=== PATIENT | female | born 1970 | race Two or more races ===

== ENCOUNTER 2017-08-08 11:16 | Emergency (ER) | payer OTHER ==
[~2017-08-08] VITALS: Ht 157.5 cm; Wt 72.6 kg
[~2017-08-08 11:16] MED LIST: CLARITIN5 MG; FLONASE16 GM; NAPROXEN500 M1; NEURONTIN600 MG; SYNTHROID50 MCG; ZANTAC300 MG
[2017-08-08] MEDS ORDERED: SYNTHROID50 MCG PO (11:33)
== END 2017-08-08 13:55 | disposition home or self-care (01) ==
LOC: ER 11:16
DX: J11.1 Influenza due to unidentified influenza virus with other respiratory manifestations (principal); B34.9 Viral infection, unspecified

== ENCOUNTER 2017-10-22 09:21 | Outpatient (CLI) | payer OTHER ==
[~2017-10-22 09:21] MED LIST changes: +SYNTHROID50 MCG PO
== END 2017-10-22 10:00 | disposition home or self-care (01) ==
LOC: NUCLEAR 09:21
DX: I74.9 Embolism and thrombosis of unspecified artery (principal); C50.611 Malignant neoplasm of axillary tail of right female breast
CPT/HCPCS: 78306; A9503

== ENCOUNTER 2018-01-19 08:45 | Outpatient (CLI) | payer OTHER | END 2018-01-19 08:57 | disposition home or self-care (01) | LOC: MAMO-SONO 08:45 | DX: Z12.31 Encounter for screening mammogram for malignant neoplasm of breast (principal); C50.811 Malignant neoplasm of overlapping sites of right female breast ==

== ENCOUNTER 2018-03-04 13:10 | Emergency (ER) | payer OTHER ==
[~2018-03-04] VITALS: Ht 157.5 cm; Wt 81.6 kg
[2018-03-04] MEDS ORDERED: NEURONTIN600 MG PO (13:29)
[2018-03-04] MEDS ORDERED: SINGULAIR10 MG PO (13:30)
== END 2018-03-04 15:24 | disposition home or self-care (01) ==
LOC: ER 13:10
DX: J31.2 Chronic pharyngitis (principal); R50.9 Fever, unspecified

== ENCOUNTER 2018-12-26 07:45 | Emergency (ER) | payer OTHER ==
[~2018-12-26] VITALS: Ht 165.1 cm; Wt 81.6 kg
[~2018-12-26 07:45] MED LIST changes: +NEURONTIN600 MG PO; +SINGULAIR10 MG PO
== END 2018-12-26 10:37 | disposition home or self-care (01) ==
LOC: ER 07:45
DX: M54.5 Low back pain (principal); R10.2 Pelvic and perineal pain

== ENCOUNTER 2021-10-24 08:30 | Emergency (ER) | payer OTHER ==
[~2021-10-24] VITALS: Ht 157.5 cm; Wt 91.2 kg
== END 2021-10-24 14:09 | disposition home or self-care (01) ==
LOC: ER 08:30
DX: R10.2 Pelvic and perineal pain (principal); N23 Unspecified renal colic

== ENCOUNTER 2023-04-07 09:06 | Outpatient (CLI) | payer OTHER | END 2023-04-07 09:30 | disposition home or self-care (01) | LOC: MAMO-SONO 09:06 | PROVIDERS: ATTEND General Practice | DX: Z12.31 Encounter for screening mammogram for malignant neoplasm of breast (principal); N64.4 Mastodynia ==

== ENCOUNTER 2024-06-25 13:18 | Emergency (ER) | payer OTHER ==
[~2024-06-25] VITALS: Ht 157.5 cm; Wt 90.7 kg
[2024-06-25] MEDS ORDERED: ZESTRIL5 MG PO (14:03)
[2024-06-25] MEDS ORDERED: GUAIFENESIN/DEXTROMETHORPHAN 10ML BLIST.PACK PO ONE ×2 (16:15→16:16)
[2024-06-25] MEDS ORDERED: METHYLPREDNISOLONE SOD SUCC 125 MG VIAL IV ONE (16:15)
[2024-06-25] MEDS ORDERED: IPRATROPIUM/ALBUTEROL SULFATE 3 ML AMPUL.NEB IH SCH (16:15)
[2024-06-25] MEDS ORDERED: CETIRIZINE HCL 5 MG/5 ML ML PO ONE (16:15)
[2024-06-25] MEDS ORDERED: CETIRIZINE HCL 5MG/5ML BLIST.PACK PO ONE (16:16)
[2024-06-25] MEDS ORDERED: METHYLPREDNISOLONE SOD SUCC 125 MG VIAL ONE (16:16)
[2024-06-25] MEDS ORDERED: IPRATROPIUM/ALBUTEROL SULFATE 3 ML AMPUL.NEB IH ONE (16:42)
[2024-06-25 18:01] LABS: HEMATOCRIT 36.2 % (36.0-45.00); HEMOGLOBIN 12.8 g/dL (12.0-15.00); MEAN CELL VOLUME 98.8 fL (80.00-100.00); MEAN CORPUSCULAR HGB CONC 35.4 g/dl (32.0-36.0); PLATELET COUNT 261 K/uL (150-450); RED BLOOD COUNT 3.66 M/uL (4.00-6.00); RED CELL DISTRIBUTION WIDTH 12.9 % (11.5-14.5)
[2024-06-25] MEDS ORDERED: IPRATROPIU0.2 MG/1 M IH (19:19)
[2024-06-25] MEDS ORDERED: XOPENEX CO1.25 MG/0. IH (19:19)
[2024-06-25] MEDS ORDERED: ZYRTEC10 MG PO (19:19)
[2024-06-25] MEDS ORDERED: ZITHROMAX500 MG PO (19:19)
[2024-06-25] MEDS ORDERED: MEDROLPACK PO (19:19)
[2024-06-25] MEDS ORDERED: TUSSIN DM LIQU118 ML PO (19:19)
== END 2024-06-25 20:09 | disposition home or self-care (01) ==
LOC: ER 13:21
PROVIDERS: Preventive Medicine Public Health & General Preventive Medicine
DX: J98.8 Other specified respiratory disorders (principal); Z20.822 Contact with and (suspected) exposure to COVID-19; I10 Essential (primary) hypertension; E03.9 Hypothyroidism, unspecified; Z85.3 Personal history of malignant neoplasm of breast

== ENCOUNTER 2024-11-28 09:39 | Emergency (ER) | payer OTHER ==
[~2024-11-28] VITALS: Ht 157.5 cm; Wt 95.7 kg
[~2024-11-28 09:39] MED LIST changes: +IPRATROPIU0.2 MG/1 M IH; +MEDROLPACK PO; +TUSSIN DM LIQU118 ML PO; +XOPENEX CO1.25 MG/0. IH; +ZESTRIL5 MG PO; +ZITHROMAX500 MG PO; +ZYRTEC10 MG PO
[2024-11-28] MEDS ORDERED: KETOROLAC TROMETHAMINE 30 MG VIAL ONE (14:09)
[2024-11-28] MEDS ORDERED: METOCLOPRAMIDE HCL 5 MG/ML VIAL ONE (14:10)
[2024-11-28] MEDS ORDERED: METOCLOPRAMIDE HCL 10 MG in DEXTROSE 5 % IN WATER 50 ML IV ONE (14:15)
[2024-11-28] MEDS ORDERED: KETOROLAC TROMETHAMINE 30 MG VIAL IV ONE (14:15)
[2024-11-28] MEDS ORDERED: NAPROXEN500 MG PO (14:20)
== END 2024-11-28 14:29 | disposition home or self-care (01) ==
LOC: ER 09:39
DX: G44.209 Tension-type headache, unspecified, not intractable (principal); I10 Essential (primary) hypertension; E03.8 Other specified hypothyroidism

== ENCOUNTER 2025-04-20 07:02 | Outpatient (CLI) | payer OTHER ==
[~2025-04-20 07:02] MED LIST changes: +NAPROXEN500 MG PO
== END 2025-04-20 07:07 | disposition home or self-care (01) ==
LOC: MAMO-SONO 07:02
PROVIDERS: ATTEND General Practice
DX: N64.4 Mastodynia (principal); Z12.31 Encounter for screening mammogram for malignant neoplasm of breast; E04.1 Nontoxic single thyroid nodule

== ENCOUNTER 2025-04-25 07:29 | Emergency (ER) | payer OTHER ==
[~2025-04-25] VITALS: Ht 157.5 cm; Wt 93.4 kg
[2025-04-25 07:42] VITALS: BP 141/85; O2SAT 98
[2025-04-25] MEDS ORDERED: DEXAMETHASONE SODIUM PHOSPHATE 4 MG/ML VIAL IM STA (08:06)
[2025-04-25] MEDS ORDERED: FAMOTIDINE/PF 20 MG/2 ML VIAL IV STA (08:06)
[2025-04-25] MEDS ORDERED: ONDANSETRON HCL 2 MG/ML VIAL IV STA (08:06)
[2025-04-25] MEDS ORDERED: ACETAMINOPHEN 500 MG GEL..CAP PO ONE ×2 (08:11→08:15)
[2025-04-25] MEDS ORDERED: DEXAMETHASONE SODIUM PHOSPHATE 4 MG/ML VIAL ONE (08:12)
[2025-04-25] MEDS ORDERED: FAMOTIDINE/PF 20 MG/2 ML VIAL ONE (08:12)
[2025-04-25] MEDS ORDERED: ONDANSETRON HCL 2 MG/ML VIAL ONE (08:12)
[2025-04-25 08:56] LABS: BASO % 0.2 % (0.1-1.2); EOS # 0.00 (0.04-0.54); EOS % 0.0 % (0.7-7.0); LYMPH # 0.59 (1.18-3.74); LYMPH % 9.0 % (19.3-53.1); MEAN PLATELET VOLUME 8.40 fl (9.4-12.4); MONO # 0.38 (0.24-0.82); MONO % 5.8 % (4.7-12.5); NEUT # 5.55 (1.56-6.13); NEUT % 84.2 % (34.0-71.1); RED CELL DISTRIBUTION WIDTH 11.8 % (11.6-14.4)
[2025-04-25 09:22] LABS: COVID-19 AG NEGATIVE (NEGATIVE)
== END 2025-04-25 13:56 | disposition home or self-care (01) ==
LOC: ER 07:29
PROVIDERS: General Practice
DX: R50.83 Postvaccination fever (principal); R53.81 Other malaise; Z20.822 Contact with and (suspected) exposure to COVID-19; I10 Essential (primary) hypertension; Z85.3 Personal history of malignant neoplasm of breast; Z87.09 Personal history of other diseases of the respiratory system

== ENCOUNTER 2025-04-28 07:41 | Emergency (ER) | payer OTHER ==
[~2025-04-28] VITALS: Ht 157.5 cm; Wt 93.4 kg
[2025-04-28] MEDS ORDERED: ONDANSETRON HCL 2 MG/ML VIAL ONE (08:23)
[2025-04-28] MEDS ORDERED: ONDANSETRON HCL 2 MG/ML VIAL IV ONE (08:30)
[2025-04-28] MEDS ORDERED: 0.9 % SODIUM CHLORIDE 1,000 ML IV ONE (08:30)
[2025-04-28] MEDS ORDERED: BENZONATATE 200 MG CAPSULE PO ONE (08:30)
[2025-04-28 09:40] LABS: BASO % 0.4 % (0.1-1.2); EOS # 0.02 (0.04-0.54); EOS % 0.4 % (0.7-7.0); LYMPH # 0.86 (1.18-3.74); LYMPH % 16.2 % (19.3-53.1); MEAN PLATELET VOLUME 8.60 fl (9.4-12.4); MONO # 0.60 (0.24-0.82); MONO % 11.3 % (4.7-12.5); NEUT # 3.76 (1.56-6.13); NEUT % 70.9 % (34.0-71.1); RED CELL DISTRIBUTION WIDTH 12.1 % (11.6-14.4)
[2025-04-28 09:50] LABS: COVID-19 AG NEGATIVE (NEGATIVE)
[2025-04-28] MEDS ORDERED: PEPCID AC20 MG PO (10:01)
[2025-04-28] MEDS ORDERED: OSEL75CA PO (10:01)
[2025-04-28 10:37] LABS: BAND MAN 3.0 %; LYMPHOCYTE MAN 14.0 %; MONOCYTE MAN 13.0 %; NEUTROPHILS MAN 70.0 %
== END 2025-04-28 10:17 | disposition home or self-care (01) ==
LOC: ER 07:42
PROVIDERS: General Practice
DX: J10.1 Influenza due to other identified influenza virus with other respiratory manifestations (principal); I10 Essential (primary) hypertension; Z20.822 Contact with and (suspected) exposure to COVID-19; Z85.3 Personal history of malignant neoplasm of breast; Z87.09 Personal history of other diseases of the respiratory system